=== PATIENT | female | born 2000 | race Caucasian/White ===

== ENCOUNTER 2024-07-09 09:46 | Inpatient (IN) | payer BC, OTHER ==
[~2024-07-09 09:46] MED LIST: Bupivacaine HCl 0.5%/Epinephrine 1:200,000/PF 30 ml Vial ONE; Terbutaline Sulfate 1 MG/ML VIAL ONE
[2024-07-09 10:40] VITALS: BMI 23.0
[2024-07-09] MEDS ORDERED: Acetaminophen 500 MG TAB PO PRN (11:39)
[2024-07-09] MEDS ORDERED: fentaNYL 50 mcg/mL 1 mL Vial SLOW IVP PRN ×2 (11:39→23:55)
[2024-07-09] MEDS ORDERED: Tranexamic Acid 1,000 MG/10 ML VIAL IVP PRN (11:39)
[2024-07-09] MEDS ORDERED: Methylergonovine 0.2 MG/ML VIAL IM PRN (11:39)
[2024-07-09] MEDS ORDERED: Misoprostol 200 MCG TAB PR PRN (11:39)
[2024-07-09] MEDS ORDERED: Ondansetron PF 4 MG/2 ML Vial IVP PRN ×3 (11:39→23:55)
[2024-07-09] MEDS ORDERED: Promethazine HCl 25 MG/ML VIAL IM PRN ×3 (11:39→23:55)
[2024-07-09] MEDS ORDERED: HYDROcodone/Acetaminophen 5/325 mg Tablet PO PRN ×2 (11:39)
[2024-07-09] MEDS ORDERED: Diphenoxylate HCl/Atropine Tablet PO PRN ×2 (11:39)
[2024-07-09] MEDS ORDERED: Carboprost 250 MCG/ML AMP IM PRN (11:39)
[2024-07-09] MEDS ORDERED: Lidocaine 1% (PF) 30 ML VIAL SC PRN (11:39)
[2024-07-09] MEDS ORDERED: Ibuprofen 800 MG TAB PO PRN (11:39)
[2024-07-09] MEDS ORDERED: hydrALAZINE 20 MG/ML VIAL SLOW IVP PRN (11:39)
[2024-07-09 11:46] LABS: Hematocrit 41.8 % (34.9-44.5); Hemoglobin 14.5 g/dL (12.0-15.5); Mean Corpuscular HGB CONC 34.7 g/dL (32.0-36.0); Mean Corpuscular Hemoglobin 32.1 pg (27.0-33.0); Mean Corpuscular Volume 92.5 fL (81.6-98.3); Platelet Count 182 10x3/uL (150-450); RBC Distribution Width 12.9 % (11.5-14.5); Red Blood Cell (RBC) Count 4.52 10x6/uL (3.90-5.03); White Blood Cell (WBC) Count 16.7 10x3/uL (3.5-10.5)
[2024-07-09 12:22] LABS: HBsAg Index 0.17 S/CO (0-0.99); Hep B Surf Ag - L&D Non-Reactive S/CO (NonReactive)
[2024-07-09 12:23] LABS: Syphilis Antibody Nonreactive (Nonreactive); Syphilis Antibody Index 0.04 S/CO (<1.00 Non-Reactive)
[2024-07-09] MEDS: Lactated Ringer's 1,000 ML IV SCH (17:32)
[2024-07-09] MEDS: Oxytocin 30 units/NS 500 ML 500 ML IV SCH ×2 (17:33→23:45)
[2024-07-09] MEDS ORDERED: Naloxone HCl 0.4 mg/ml Vial IVP PRN ×4 (19:09→23:55)
[2024-07-09] MEDS ORDERED: Acetaminophen 325 MG TAB PO PRN (19:09)
[2024-07-09] MEDS ORDERED: diphenhydrAMINE 50 MG/ML VIAL IVP PRN ×2 (19:09→23:55)
[2024-07-09] MEDS ORDERED: ePHEDrine Sulfate 50 MG/10 ML VIAL SLOW IVP PRN (19:09)
[2024-07-09] MEDS ORDERED: Lactated Ringer's 500 ML IV PRN (19:09)
[2024-07-09] MEDS ORDERED: Moisturizing Cream (Eucerin) 113 GM JAR TOP PRN ×2 (19:09→23:55)
[2024-07-09] MEDS ORDERED: Communication Order-Pharmacy FS SCH ×2 (19:15→23:45)
[2024-07-09] MEDS ORDERED: fentaNYL 2 mcg/Ropivacaine 0.2% Epidural 100 ML CADD EPIDURAL SCH (19:15)
[2024-07-09] MEDS: Ondansetron PF 4 MG/2 ML Vial IVP PRN (21:40)
[2024-07-09] MEDS: CEFAZOLIN 2 GM VIAL ONE (22:15)
[2024-07-09] MEDS ORDERED: Naloxone HCl 0.4 mg/ml Vial IV PRN (23:55)
[2024-07-09] MEDS ORDERED: Meperidine HCl/PF 25 MG (1 mL) VIAL SLOW IVP PRN (23:55)
[2024-07-10] MEDS: Ketorolac Tromethamine 30 MG (1 mL) VIAL IVP SCH (00:34)
[2024-07-10] MEDS ORDERED: diphenhydrAMINE 25 MG CAP PO PRN (01:38)
[2024-07-10] MEDS ORDERED: hydrALAZINE 20 MG/ML VIAL SLOW IVP PRN (01:38)
[2024-07-10] MEDS ORDERED: Boostrix 0.5 ML (Tdap) VIAL (>/=7 yrs of age) IM ONE (01:38)
[2024-07-10] MEDS ORDERED: Methylergonovine 0.2 MG/ML VIAL IM PRN (01:38)
[2024-07-10] MEDS ORDERED: Simethicone Chewable 80 MG TAB PO PRN (01:38)
[2024-07-10] MEDS ORDERED: Misoprostol 200 MCG TAB PR PRN (01:38)
[2024-07-10] MEDS: fentaNYL/Ropivacaine Epidural 100 ML ONE (02:51)
[2024-07-10] MEDS: Lidocaine 2% MPF 10 ML AMP (For Epidural Use) ONE (02:51)
[2024-07-10] MEDS: Bupivacaine PF 0.5% 30 ML VIAL ONE (02:51)
[2024-07-10] MEDS: Oxytocin 10 UNITS/ML VIAL ONE ×2 (02:51→02:52)
[2024-07-10] MEDS: Azithromycin 500 MG VIAL ONE (02:51)
[2024-07-10] MEDS: fentaNYL 50 mcg/mL 1 mL Vial ONE ×2 (02:52)
[2024-07-10] MEDS: PHENYLEPHRINE-NS 100 MCG/ML 10 ML SYRINGE ONE (02:52)
[2024-07-10] MEDS: Morphine PF 10 MG/10 ML VIAL ONE (02:52)
[2024-07-10 03:52] LABS: Hematocrit 34.6 % (34.9-44.5); Hemoglobin 12.3 g/dL (12.0-15.5); Mean Corpuscular HGB CONC 35.5 g/dL (32.0-36.0); Mean Corpuscular Hemoglobin 33.2 pg (27.0-33.0); Mean Corpuscular Volume 93.5 fL (81.6-98.3); Platelet Count 158 10x3/uL (150-450)
[2024-07-10] MEDS: Ketorolac Tromethamine 30 MG (1 mL) VIAL IVP PRN (06:01)
[2024-07-10] MEDS: Docusate 100 MG CAP PO SCH (08:09)
[2024-07-10] MEDS: Prenatal Vitamin 1 TAB PO SCH (08:09)
[2024-07-10] MEDS: Ferrous Sulfate 325 MG TAB PO SCH (10:37)
[2024-07-10] MEDS ORDERED: HYDROcodone/Acetaminophen 5/325 mg Tablet PO PRN ×2 (11:45)
[2024-07-10] MEDS: Acetaminophen 325 MG TAB PO PRN (15:18)
[2024-07-11] MEDS: Ibuprofen 800 MG TAB PO SCH (05:14)
[2024-07-12 12:24] VITALS: BP 121/78; TEMP 98.6
== END 2024-07-12 15:00 | disposition home or self-care (01) | DRG 788 ==
LOC: CSHLD/OP 09:46 → CSHLD 10:34 → CSHPP 07-10 01:25
PROVIDERS: ADMIT Obstetrics & Gynecology; ATTEND Obstetrics & Gynecology
PROC: 10D00Z1 Extraction of Products of Conception, Low, Open Approach (ICD-10-PCS; principal; 2024-07-09)
DX: O48.0 Post-term pregnancy (principal); Z37.0 Single live birth; O76 Abnormality in fetal heart rate and rhythm complicating labor and delivery; Z3A.40 40 weeks gestation of pregnancy
CPT/HCPCS: 36415; 51702; 85027; 86780; 86850; 86900; 86901; 87340; 99285; J0665; J1885; J2274; J2405; J2590; J3010; J3105; J7120